=== PATIENT | female | born 1980 | race African-American/Black ===

== ENCOUNTER 2024-01-28 08:24 | Day surgery (SDC) | payer OTHER ==
[~2024-01-28] VITALS: Ht 160 cm; Wt 106.6 kg
[2024-01-28] MEDS ORDERED: fentaNYL citrate 0.05 MG/ML VIAL ONE (09:44)
[2024-01-28] MEDS ORDERED: MIDAZOLAM 5 MG/5 ML VIAL ONE (09:45)
[2024-01-28] MEDS: MIDAZOLAM 2 MG/2 ML VIAL IV ONE (10:13)
== END 2024-01-28 11:15 | disposition home or self-care (01) ==
LOC: MDS 08:24 → MMU 08:26 → MDS 11:15
PROVIDERS: ATTEND Internal Medicine Gastroenterology
DX: R11.11 Vomiting without nausea (principal); K31.4 Gastric diverticulum; E03.9 Hypothyroidism, unspecified; D64.9 Anemia, unspecified; J45.909 Unspecified asthma, uncomplicated; F41.9 Anxiety disorder, unspecified; Z98.84 Bariatric surgery status; Z91.040 Latex allergy status; Z88.5 Allergy status to narcotic agent; Z79.899 Other long term (current) drug therapy; Z98.890 Other specified postprocedural states
CPT/HCPCS: 43235; J2250; J3010